=== PATIENT | female | born 1970 | race Two or more races ===

== ENCOUNTER 2020-07-05 13:42 | Outpatient (CLI) | payer MEDICAID ==
[~2020-07-05] VITALS: Ht 152.4 cm; Wt 78.0 kg
[2020-07-05 13:52] VITALS: BP 113/78
--- NOTE | 2020-07-05 14:29 | Consultation ---
DATE OF CONSULTATION: 07/05/2020 CHIEF COMPLAINT: Referral for screening colonoscopy. PAST MEDICAL HISTORY: Left breast cancer. PAST SURGICAL HISTORY: Mastectomy. MEDICATIONS: Please see medication reconciliation list. Tamoxifen and levothyroxine. FAMILY HISTORY: Noncontributory. SOCIAL HISTORY: The patient denies any tobacco, alcohol, or drug abuse. ALLERGIES: . REVIEW OF SYSTEMS: Negative. PHYSICAL EXAMINATION: VITAL SIGNS: Temperature 97.3, blood pressure 113/78, pulse is 85, respirations 20. HEENT: Normocephalic and atraumatic. Sclerae anicteric. NECK: Supple. No evidence of obvious lymphadenopathy. CARDIOVASCULAR: Regular rate and rhythm. Plus S1, S2. LUNGS: Clear to auscultation bilaterally. ABDOMEN: Positive bowel sounds. Soft and nontender. No rebound. No guarding. No peritoneal sign. EXTREMITIES: No cyanosis, no clubbing. ASSESSMENT AND PLAN: This is a 50-year-old female was referred for screening colonoscopy. The patient was given the instruction for colonoscopy. Risks and benefits of procedure was explained to her. We will schedule her as soon as authorization is obtained. Alec Davis M.D. DR: Kaylah JOB#: [id number] CC:
== END 2020-07-05 14:22 | disposition home or self-care (01) ==
LOC: PAN 13:42
DX: Z00.00 Encounter for general adult medical examination without abnormal findings (principal); Z85.3 Personal history of malignant neoplasm of breast; Z90.12 Acquired absence of left breast and nipple; Z79.899 Other long term (current) drug therapy
CPT/HCPCS: 99203